=== PATIENT | male | born 1955 | race Caucasian/White ===

== ENCOUNTER 2019-04-06 09:03 | Day surgery (SDC) | payer MEDICARE, MEDICAID ==
[~2019-04-06] VITALS: Ht 182.9 cm; Wt 115.9 kg
[2019-04-06] VITALS (19 sets, daily range): BP systolic 91–133; BP diastolic 49–75
[2019-04-06] MEDS ORDERED: LISI10TA4 PO (09:37)
[2019-04-06] MEDS ORDERED: FLUT1AER (09:37)
[2019-04-06] MEDS ORDERED: DIVA500T9 PO (09:37)
[2019-04-06] MEDS ORDERED: ASPI-611 PO (09:37)
[2019-04-06] MEDS ORDERED: LEVE750T6 PO (09:37)
[2019-04-06] MEDS ORDERED: LIOT5TAB10 PO (09:37)
[2019-04-06] MEDS ORDERED: CARV-50 PO (09:37)
[2019-04-06] MEDS ORDERED: UMEC62.5 (09:37)
[2019-04-06] MEDS ORDERED: SPIR25TA PO (09:37)
[2019-04-06] MEDS ORDERED: LEVO50TA8 PO (09:37)
[2019-04-06] MEDS ORDERED: ESCI20TA38 PO (09:37)
[2019-04-06] MEDS ORDERED: ALBU8.5H8 INH (09:37)
[2019-04-06] MEDS ORDERED: ATOR10TA87 PO (09:37)
[2019-04-06 09:58] LABS: BASOPHILS % (AUTO) 0.6 % (0-1); EOSINOPHILS # (AUTO) 0.2 X10'3 (0-0.9); EOSINOPHILS % (AUTO) 3.9 % (0-6); HEMOGLOBIN 14.4 g/dl (14.0-17.9); LYMPHOCYTES % (AUTO) 31.5 % (21-51); MEAN CORPUSCULAR HEMOGLOBIN 32.2 PG (27.0-31.0); MEAN CORPUSCULAR HGB CONC 33.6 g/dL (33.0-36.5); MEAN CORPUSCULAR VOLUME 95.8 FL (78-98); MONOCYTES # (AUTO) 0.7 X10'3 (0-0.9); MONOCYTES % (AUTO) 11.3 % (2-12); NEUTROPHILS # (AUTO) 3.3 X10'3 (1.8-7.7); NEUTROPHILS % (AUTO) 52.7 % (42-75); PLATELET COUNT 278 X10'3 (140-440); RED BLOOD COUNT 4.49 X10'6 (4.70-6.10); WHITE BLOOD COUNT 6.3 X10'3 (4.5-11.0)
[2019-04-06 10:13] LABS: ALBUMIN 3.9 G/DL (3.4-5.0); ANION GAP 11 (8-16); BLOOD UREA NITROGEN 25 MG/DL (7-18); BUN/CREATININE RATIO 32.1 (5.4-32.0); CALCIUM 9.2 MG/DL (8.5-10.1); CHLORIDE 104 MMOL/L (99-107); CREATININE 0.78 MG/DL (0.60-1.10); GLUCOSE 102 MG/DL (70-104); POTASSIUM 4.6 MMOL/L (3.5-5.1); SODIUM 141 MMOL/L (135-145); TOTAL CARBON DIOXIDE 26.2 MMOL/L (24-32); eGFR > 90 ML/MIN
[2019-04-06] MEDS ORDERED: LIDOcaine 1% (10mg/ml) 2ml vial SQ ONE (10:30)
[2019-04-06] MEDS ORDERED: fentaNYL/PF 50MCG/1 ML 2ML syringe IV PRN (10:30)
[2019-04-06] MEDS ORDERED: midazolam 2 mg/2 ml injection IV PRN (10:30)
[2019-04-06] MEDS ORDERED: midazolam 2 mg/2 ml injection ONE (11:22)
[2019-04-06] MEDS ORDERED: fentaNYL/PF 50MCG/1 ML 2ML syringe ONE (11:23)
[2019-04-06] MEDS ORDERED: LIDOcaine 1%/PF 5ML 10 MG/ML VIAL ONE (12:21)
[2019-04-06] MEDS ORDERED: HYDROcodone/acetaminophen 5mg/325mg tablet PO PRN (13:05)
[2019-04-06] MEDS ORDERED: morphine 4 MG/ML inj SYRINge IV PRN (13:05)
== END 2019-04-06 15:53 | disposition home or self-care (01) ==
LOC: SSTAY O 09:03
PROVIDERS: ATTEND Radiology Diagnostic Radiology
DX: C34.32 Malignant neoplasm of lower lobe, left bronchus or lung (principal); I25.2 Old myocardial infarction; J44.9 Chronic obstructive pulmonary disease, unspecified; E03.9 Hypothyroidism, unspecified; I10 Essential (primary) hypertension; Z87.891 Personal history of nicotine dependence; Z72.89 Other problems related to lifestyle; Z79.899 Other long term (current) drug therapy; Z79.82 Long term (current) use of aspirin; Z95.0 Presence of cardiac pacemaker; Z79.01 Long term (current) use of anticoagulants
CPT/HCPCS: 32405; 36415; 71045; 77012; 80048; 85025; 85610; 99152; 99153; J2250; J3010; 88305; 88341; 88342

== ENCOUNTER 2019-04-09 15:44 | Emergency (ER) | payer MEDICARE, MEDICAID ==
[~2019-04-09] VITALS: Ht 182.9 cm; Wt 115.0 kg
[~2019-04-09 15:44] MED LIST: ALBU8.5H8 INH; ASPI-611 PO; ATOR10TA87 PO; CARV-50 PO; DIVA500T9 PO; ESCI20TA38 PO; FLUT1AER; LEVE750T6 PO; LEVO50TA8 PO; LIOT5TAB10 PO; LISI10TA4 PO; SPIR25TA PO; UMEC62.5
[2019-04-09] MEDS ORDERED: aspirin 81mg tab.chew PO ONE (15:50)
[2019-04-09] MEDS ORDERED: nitroGLYCERIN 0.4mg SUBLingual tab SL PRN (15:50)
[2019-04-09 16:28] LABS: BASOPHILS % (AUTO) 0.5 % (0-1); EOSINOPHILS # (AUTO) 0.3 X10'3 (0-0.9); EOSINOPHILS % (AUTO) 4.5 % (0-6); HEMATOCRIT 40.2 % (42.0-52.0); HEMOGLOBIN 13.7 g/dl (14.0-17.9); LYMPHOCYTES % (AUTO) 27.6 % (21-51); MEAN CORPUSCULAR HEMOGLOBIN 32.8 PG (27.0-31.0); MEAN CORPUSCULAR VOLUME 96.5 FL (78-98); MEAN PLATELET VOLUME 8.1 FL (7.4-10.4); MONOCYTES # (AUTO) 0.8 X10'3 (0-0.9); MONOCYTES % (AUTO) 11.8 % (2-12); NEUTROPHILS % (AUTO) 55.6 % (42-75); PLATELET COUNT 283 X10'3 (140-440); RED BLOOD COUNT 4.17 X10'6 (4.70-6.10); RED CELL DISTRIBUTION WIDTH 13.6 % (11.5-14.5); WHITE BLOOD COUNT 7.2 X10'3 (4.5-11.0)
[2019-04-09] MEDS ORDERED: morphine 4 MG/ML inj SYRINge IV ONE (16:40)
[2019-04-09] MEDS ORDERED: ondansetron/PF 4mg/2ml inj IV ONE (16:40)
[2019-04-09] MEDS ORDERED: normal saline 1000ML IV soln IVB ONE (16:40)
[2019-04-09] MEDS ORDERED: LORazepam 2 mg/ml vial IV ONE (16:40)
[2019-04-09 16:49] LABS: ALANINE AMINOTRANSFERASE 30 U/L (12-78); ALBUMIN 3.5 G/DL (3.4-5.0); ALBUMIN/GLOBULIN RATIO 0.9 (1.1-1.5); ALKALINE PHOSPHATASE 73 IU/L (46-116); ANION GAP 10 (8-16); ASPARTATE AMINO TRANSFERASE 12 U/L (10-37); BILIRUBIN,TOTAL 0.3 MG/DL (0.1-1.0); BLOOD UREA NITROGEN 20 MG/DL (7-18); BUN/CREATININE RATIO 23.5 (5.4-32.0); CALCIUM 8.9 MG/DL (8.5-10.1); CHLORIDE 105 MMOL/L (99-107); CREATININE 0.85 MG/DL (0.60-1.10); GLUCOSE 94 MG/DL (70-104); POTASSIUM 4.5 MMOL/L (3.5-5.1); SODIUM 142 MMOL/L (135-145); TOTAL CARBON DIOXIDE 26.7 MMOL/L (24-32); TOTAL PROTEIN 7.4 G/DL (6.4-8.2); eGFR > 90 ML/MIN
[2019-04-09] MEDS ORDERED: HYDR-4383 PO (17:21)
[2019-04-09 18:10] VITALS: BP 109/68
== END 2019-04-09 18:11 | disposition home or self-care (01) ==
LOC: ER 15:44
DX: J93.9 Pneumothorax, unspecified (principal); R00.0 Tachycardia, unspecified; I25.10 Atherosclerotic heart disease of native coronary artery without angina pectoris; I10 Essential (primary) hypertension; I25.2 Old myocardial infarction; J44.9 Chronic obstructive pulmonary disease, unspecified; C34.90 Malignant neoplasm of unspecified part of unspecified bronchus or lung; Z79.82 Long term (current) use of aspirin; Z79.899 Other long term (current) drug therapy
CPT/HCPCS: 36415; 71045; 71250; 80053; 83880; 84484; 85025; 85610; 93005; 96374; 96375; 99284; J2060; J2270; J2405; J7030

== ENCOUNTER 2019-04-11 20:24 | Emergency (ER) | payer MEDICARE, MEDICAID ==
[~2019-04-11] VITALS: Ht 182.9 cm; Wt 115.9 kg
[~2019-04-11 20:24] MED LIST changes: +HYDR-4383 PO
[2019-04-11 20:30] VITALS: BP 122/64
== END 2019-04-11 22:32 | disposition home or self-care (01) ==
LOC: ER 20:25
DX: J93.9 Pneumothorax, unspecified (principal); I25.10 Atherosclerotic heart disease of native coronary artery without angina pectoris; I10 Essential (primary) hypertension; I25.2 Old myocardial infarction; J44.9 Chronic obstructive pulmonary disease, unspecified; Z85.118 Personal history of other malignant neoplasm of bronchus and lung; Z79.899 Other long term (current) drug therapy; Z79.82 Long term (current) use of aspirin
CPT/HCPCS: 71046; 99283

== ENCOUNTER 2019-05-05 06:55 | Day surgery (SDC) | payer MEDICARE, MEDICAID ==
[2019-05-05 08:00] VITALS: BP 129/71
== END 2019-05-05 08:50 | disposition home or self-care (01) ==
LOC: SSTAY O 06:55
PROVIDERS: ATTEND Radiology Diagnostic Radiology
DX: C34.32 Malignant neoplasm of lower lobe, left bronchus or lung (principal); J90 Pleural effusion, not elsewhere classified; J44.9 Chronic obstructive pulmonary disease, unspecified; I10 Essential (primary) hypertension; E03.9 Hypothyroidism, unspecified; I25.2 Old myocardial infarction; E78.00 Pure hypercholesterolemia, unspecified; Z95.0 Presence of cardiac pacemaker; Z87.891 Personal history of nicotine dependence; Z79.899 Other long term (current) drug therapy; Z79.82 Long term (current) use of aspirin
CPT/HCPCS: 76604

== ENCOUNTER 2019-07-20 14:01 | Emergency (ER) | payer MEDICARE, MEDICAID ==
[~2019-07-20] VITALS: Ht 185.4 cm; Wt 100.0 kg
[2019-07-20] MEDS ORDERED: ipratropium/albuterol 3ml nebule NEB ONE (17:10)
[2019-07-20 17:47] LABS: BASOPHILS # (AUTO) 0.1 X10'3 (0-0.2); BASOPHILS % (AUTO) 0.8 % (0-1); EOSINOPHILS # (AUTO) 0.7 X10'3 (0-0.9); EOSINOPHILS % (AUTO) 7.1 % (0-6); HEMATOCRIT 38.5 % (42.0-52.0); HEMOGLOBIN 13.3 g/dl (14.0-17.9); LYMPHOCYTES % (AUTO) 20.8 % (21-51); MEAN CORPUSCULAR HGB CONC 34.7 g/dL (33.0-36.5); MEAN CORPUSCULAR VOLUME 95.3 FL (78-98); MEAN PLATELET VOLUME 6.9 FL (7.4-10.4); MONOCYTES # (AUTO) 1.8 X10'3 (0-0.9); NEUTROPHILS # (AUTO) 4.9 X10'3 (1.8-7.7); NEUTROPHILS % (AUTO) 52.3 % (42-75); PLATELET COUNT 447 X10'3 (140-440); RED BLOOD COUNT 4.04 X10'6 (4.70-6.10); RED CELL DISTRIBUTION WIDTH 13.9 % (11.5-14.5); WHITE BLOOD COUNT 9.5 X10'3 (4.5-11.0)
[2019-07-20 18:02] LABS: ALANINE AMINOTRANSFERASE 48 U/L (12-78); ALBUMIN 3.1 G/DL (3.4-5.0); ALBUMIN/GLOBULIN RATIO 0.8 (1.1-1.5); ALKALINE PHOSPHATASE 87 IU/L (46-116); ANION GAP 6 (8-16); ASPARTATE AMINO TRANSFERASE 17 U/L (10-37); BILIRUBIN,TOTAL 0.2 MG/DL (0.1-1.0); BLOOD UREA NITROGEN 17 MG/DL (7-18); BUN/CREATININE RATIO 22.1 (5.4-32.0); CALCIUM 8.7 MG/DL (8.5-10.1); CHLORIDE 107 MMOL/L (99-107); CREATININE 0.77 MG/DL (0.60-1.10); GLUCOSE 95 MG/DL (70-104); POTASSIUM 4.6 MMOL/L (3.5-5.1); SODIUM 143 MMOL/L (135-145); TOTAL CARBON DIOXIDE 30.4 MMOL/L (24-32); TOTAL PROTEIN 7.2 G/DL (6.4-8.2); eGFR > 90 ML/MIN
[2019-07-20 18:28] LABS: BANDS% (MANUAL) 5 % (0-10); BASOPHILS % (MANUAL) 1 % (0-1); EOSINOPHILS % (MANUAL) 4 % (0-6); LYMPHOCYTES % (MANUAL) 23 % (21-51); MONOCYTES % (MANUAL) 14 % (2-12); NEUTROPHILS % (MANUAL) 47 % (42-75); PLATELET ESTIMATE NORMAL; REACTIVE LYMPHOCYTES % 6 % (0-0); TOTAL CELLS COUNTED 200
[2019-07-20 18:30] LABS: BURR CELLS FEW
[2019-07-20 19:28] VITALS: BP 119/62
== END 2019-07-20 19:25 | disposition home or self-care (01) ==
LOC: ER 14:01
DX: J40 Bronchitis, not specified as acute or chronic (principal); I25.10 Atherosclerotic heart disease of native coronary artery without angina pectoris; I10 Essential (primary) hypertension; J44.9 Chronic obstructive pulmonary disease, unspecified; I25.2 Old myocardial infarction; Z85.118 Personal history of other malignant neoplasm of bronchus and lung; Z79.82 Long term (current) use of aspirin; Z79.899 Other long term (current) drug therapy
CPT/HCPCS: 36415; 71045; 80053; 83880; 84145; 85025; 94640; 99284